=== PATIENT | female | born 1990 | race Caucasian/White ===

== ENCOUNTER → 2016-07-02 | Outpatient (CLI) | payer OTHER ==
--- NOTE | 2016-07-02 14:58 | US ---
July 02, [address] Aly Pryor, Thank you for allowing me to see your patient, Mrs. Estrada for aneuploidy screening and con sult. As you know she is a 25 year-old, 4, para 2011. Her due date is 01/10/17 by 10 week u ltrasound. Based on this dating her current gestational age is 12 weeks 4 days. She is a healthy yo yayo woman with a recent miscarriage. ULTRASOUND CRL: 66 mm Gestational Age by CRL: 12 weeks 5 days BRAXTON by CRL: 01/09/17 Consistent with established dating (LMP or ultrasound): Yes Nuchal Translucency: 1.4 mm Nasal Bone: Present Heart Rate: 160 bpm Placenta: Anterior Right Ovary: Is seen and appears normal. It measures 2.4 x 1.4 x 1.9 cm. Left Ovary: Is seen and appears normal. It measures 1.8 x 1.1 x 2.1 cm. No overt structural anomalies were identified for this early ultrasound with the normal appearance of the choroids, bladder, two arms, and legs. But please note the full anatomic evaluation has not occ urred for this early gestational age. The nuchal translucency measurement alone can detect 70% of fetuses with Down syndrome. The first scr een is based on a combination of today's NT measurement, maternal information, and hormone analyte le vels. The first screen can detect approximately 83% of fetuses affected by Down syndrome and 80% of t hose affected by trisomy 18. The sequential screen is based on a combination of the first screen and a second trimester blood draw between 15 and 20 weeks. The sensitivity of that screen is approximatel y 92% for trisomy 21 and 90% for trisomy 18. Cell free DNA screening for aneuploidy was also reviewed and is an available option to your pat ient. The sensitivities for detection of Trisomy 21 and 18 are 99% and 92% for Trisomy 13. After review of the different options for screening for aneuploidy as well as the options for diagnos tic testing with CVS and amniocentesis, the patient chose to proceed with the sequential screen. Foll owing the ultrasound examination, she had her blood drawn and preliminary results should be available in 4 to 5 days. Final results will be available after her second trimester blood draw. Impression: 1. Intrauterine at 12 w, 4 d, BRAXTON of 01/10/17. 2. Nuchal translucency measurement today is 1.4 mm, which is reassuring. Her blood was drawn today for the first part of the Sequential Screen. Recommendations: 1. Second trimester blood draw between 15 and 20 weeks is recommended to complete the analysis for t he Sequential Screen. 2. Recommend a detailed obstetrical ultrasound between 19 and 20 weeks to evaluate anatomy. Thank you for allowing us the opportunity to evaluate your patient. Should you have any further ques tions or concerns please do not hesitate to contact me. Approximately 20 minutes were spent with the patient and 12 minutes were spent in face to face consu ltation. Missy Alicea MD Historical Site Guide Maternal Medicine Department of Obstetrics & Gynecology [facility]
--- NOTE | 2016-07-02 15:58 | US ---
First Trimester Obstetrical Sonography Clinical History: 25-year-old female presenting for early screening evaluation. Technique: A curvilinear 5 MHz transducer was used to sonographically evaluate the fetus and the plac enta. M-mode Doppler is used. Dr. Missy Alicea is present. LMP: April 05, 2016, indicating an age of 12 weeks 4 days, and an estimated date of delivery of 2016. Findings: There is a single viable intrauterine gestation with a crown-rump length of 66 mm, correspo nding to an age of 13 weeks 0 days. The heart rate is 160 bpm. There is no focal fibroid or sub chorionic hemorrhage. The nuchal translucency is normal, measuring 1.4 mm and the nasal bone is prese nt. The placenta is forming anteriorly. The maternal ovaries appear normal, measuring 1.4 x 1.9 x 2.4 cm on the right, and 1.8 x 1.1 x 2.1 cm on the left. Impression: There is a single viable intrauterine gestation with concordant biometry, having 2 normal early screening markers. The patient should return at 20 weeks gestation for more complete anatomic screening and repeat biome try. Please also refer to Dr. Alicea's separate assessments and specific recommendations for follow-up.
== END ==
LOC: FIMAGING 13:18
PROVIDERS: ATTEND Obstetrics & Gynecology
DX: Z34.91 Encounter for supervision of normal pregnancy, unspecified, first trimester (principal); Z3A.12 12 weeks gestation of pregnancy

== ENCOUNTER → 2016-08-30 | Outpatient (CLI) | payer BC | LOC: FIMAGING 14:13 | PROVIDERS: ATTEND Obstetrics & Gynecology | DX: Z36 Encounter for antenatal screening of mother (principal); Z3A.21 21 weeks gestation of pregnancy ==